=== PATIENT | female | born 1980 | race Caucasian/White ===

== ENCOUNTER 2019-09-10 17:14 | Emergency (ER) | payer BC ==
[2019-09-10 17:30] VITALS: BP 123/85
[2019-09-10 19:05] LABS: Influenza A Molecular NEGATIVE (Negative); Influenza B Molecular NEGATIVE (Negative)
--- NOTE | 2019-09-10 19:07 | UC ---
Throat Pain/Nasal Jose Elias HPI - History of Current Complaint Chief Complaint: UCRespiratory Stated Complaint: COUGH, SORE THROAT, CONGESTION Time Seen by Provider: 09/10/19 19:01 Hx Last Menstrual Period: now Pain Intensity: 3 - Allergies/Home Medications Allergies/Adverse Reactions: Allergies Allergy/AdvReac Type Severity Reaction Status Date / Time No Known Allergies Allergy Verified 09/10/19 17:31 Home Medications: Home Medications Fexofenadine (NF) [Tawanna 180 (NF)] 1 tab PO DAILY 09/10/19 [History Confirmed 09/10/19] diPHENhydraMINE PO* [Benadryl PO 50 MG CAP*] 1 tab PO Q6HR 09/10/19 [History Confirmed 09/10/19] PMH/Surg Hx/FS Hx/Imm Hx - Surgical History Surgical History: None - Social History Alcohol Use: Occasionally Substance Use Type: None Smoking Status (MU): Never Smoked Tobacco Physical Exam Vital Signs: Initial Vital Signs Temp 98.4 F 09/10/19 17:28 Pulse 112 09/10/19 17:28 Resp 12 09/10/19 17:28 BP 123/85 09/10/19 17:28 Pulse Ox 99 09/10/19 17:28 Discharge ED - Discharge Plan Condition: Stable Disposition: HOME Prescriptions: Amoxicillin/Clavulanate TAB* [Augmentin TAB 875*] 875 mg PO BID #10 tab Benzonatate CAP* [Tessalon 100 MG CAP*] 100 mg PO BID PRN #14 cap PRN Reason: Cough Patient Education Materials: Rhinosinusitis (ED), Acute Bronchitis (ED), Bronchospasm (ED) Referrals: Care [facility] [Outside] - If Needed [facility] [place] [facility] REFERR[facility] [Outside] - If Needed Additional Instructions: As discussed, take Augmentin for treatment of your sinusitis. You may continue with mucinex to help reduce mucous production. You may also use a nasal saline spray or Flonase for symptom relief. You may take the tessalon perles as prescribed for relief of coughing. A humidifier at night may also help relieve symptoms. Follow up with your primary care provider if symptoms do not begin to resolve within 7-10 days. Return or go to the emergency room if you experience fever, difficulty breathing , nausea and vomiting, or you cough up blood. - Billing Disposition and Condition Condition: STABLE Disposition: Home
--- NOTE | 2019-09-13 14:12 | UC ---
Throat Pain/Nasal Jose Elias HPI - HPI Summary HPI Summary: Patient is a 39yo female presenting with chest congestion and sinus congestion x6 days. Patient states that cough is worse at night and preventing her from sleeping well. Denies productive cough. Does note PND and sinus pressure. Denies ear pain. Denies sore throat. Denies SOB, wheezing, and difficulty breathing. Denies n/v. Denies fever, chills, and decreased appetite. States she has taken mucinex without much relief. Notes h/o environmental allergies for which she takes sabina. Denies h/o asthma. Nonsmoker. Notes ill contact with flu. - History of Current Complaint Chief Complaint: UCRespiratory Stated Complaint: COUGH, SORE THROAT, CONGESTION Time Seen by Provider: 09/10/19 19:01 Hx Obtained From: Patient Hx Last Menstrual Period: now Onset/Duration: Gradual Onset Pain Intensity: 0 Pain Scale Used: 0-10 Numeric Related History: Seasonal Allergies - Allergies/Home Medications Allergies/Adverse Reactions: Allergies Allergy/AdvReac Type Severity Reaction Status Date / Time No Known Allergies Allergy Verified 09/10/19 17:31 Home Medications: Home Medications Fexofenadine (NF) [Sabina 180 (NF)] 1 tab PO DAILY 09/10/19 [History Confirmed 09/10/19] diPHENhydraMINE PO* [Benadryl PO 50 MG CAP*] 1 tab PO Q6HR 09/10/19 [History Confirmed 09/10/19] PMH/Surg Hx/FS Hx/Imm Hx - Surgical History Surgical History: None - Family History Known Family History: Positive: Non-Contributory - Social History Alcohol Use: Occasionally Substance Use Type: None Smoking Status (MU): Never Smoked Tobacco Review of Systems All Other Systems Reviewed And Are Negative: Yes Constitutional: Positive: Negative. Negative: Fever, Chills ENT: Positive: Nasal Discharge - PND, Sinus Congestion, Sinus Pain/Tenderness. Negative: Sore Throat, Ear Ache Respiratory: Positive: Cough - nonproductive. Negative: Shortness Of Breath Cardiovascular: Positive: Negative Gastrointestinal: Positive: Negative Musculoskeletal: Negative: Myalgia Neurological: Negative: Headache Physical Exam Triage Information Reviewed: Yes Appearance: Well-Appearing, No Pain Distress, Well-Nourished Vital Signs: Initial Vital Signs Temp 98.4 F 09/10/19 17:28 Pulse 112 09/10/19 17:28 Resp 12 09/10/19 17:28 BP 123/85 09/10/19 17:28 Pulse Ox 99 09/10/19 17:28 Lab Results 09/10/19 Range/Units 18:53 Influenza A (Rapid) Negative (Negative) Influenza B (Rapid) Negative (Negative) Vital Signs Reviewed: Yes Eyes: Positive: Conjunctiva Clear ENT: Positive: Hearing grossly normal, Pharyngeal erythema, Nasal congestion, TMs normal, Sinus tenderness - maxillary, Uvula midline. Negative: Tonsillar swelling, Tonsillar exudate Neck exam: Normal Neck: Positive: Supple, Nontender, No Lymphadenopathy Respiratory Exam: Normal Respiratory: Positive: Lungs clear, Normal breath sounds, No respiratory distress, No accessory muscle use. Negative: Crackles, Rhonchi, Stridor, Wheezing Cardiovascular Exam: Normal Cardiovascular: Positive: RRR, No Murmur Neurological: Positive: Alert Psychological: Positive: Age Appropriate Behavior Skin Exam: Normal - no erythema or ecchymosis Throat Pain/Nasal Course/Dx - Course Course Of Treatment: Patient with sinus congestion/pressure and persistent cough x6 days. Influenza negative. I treated patient with augmentin for sinusitis and instructed to continue with sabina and flonase or saline spray. I prescribed tesslon perles and instructed to take otc cough medication at night, such as delsym or robitussin, to help alleviate coughing. Instructed to use humidifer as well. Instructed to follow up with pcp if symptoms do not resolve within 7-10 days. Instructed to go to ED with any new or worsening symptoms. Patient voiced understanding and agreed with treatment plan. - Differential Dx/Diagnosis Differential Diagnosis/HQI/PQRI: Influenza, Sinusitis, URI, Other - bronchitis Provider Diagnosis: Sinusitis, Acute bronchitis with bronchospasm Discharge ED - Sign-Out/Discharge Documenting (check all that apply): Patient Departure All imaging exams completed and their final reports reviewed: No Studies - Discharge Plan Condition: Stable Disposition: HOME Prescriptions: Amoxicillin/Clavulanate TAB* [Augmentin TAB 875*] 875 mg PO BID #10 tab Benzonatate CAP* [Tessalon 100 MG CAP*] 100 mg PO BID PRN #14 cap PRN Reason: Cough Patient Education Materials: Acute Bronchitis (ED), Rhinosinusitis (ED), Bronchospasm (ED) Referrals: [facility] [Outside] - If Needed [facility] [place] [facility] RE[facility]ERR[facility] [Outside] - If Needed Additional Instructions: As discussed, take Augmentin for treatment of your sinusitis. You may continue with mucinex to help reduce mucous production. You may also use a nasal saline spray or Flonase for symptom relief. You may take the tessalon perles as prescribed for relief of coughing. A humidifier at night may also help relieve symptoms. Follow up with your primary care provider if symptoms do not begin to resolve within 7-10 days. Return or go to the emergency room if you experience fever, difficulty breathing , nausea and vomiting, or you cough up blood. - Billing Disposition and Condition Condition: STABLE Disposition: Home - Attestation Statements Provider Attestation: I was available for consult. This patient was seen by the MARIE. The patient was not presented to, seen by, or examined by me. -Tatyana
== END 2019-09-10 19:45 | disposition home or self-care (01) ==
LOC: UCEAST 17:14
DX: J32.9 Chronic sinusitis, unspecified (principal); J20.9 Acute bronchitis, unspecified
CPT/HCPCS: 99202; G0463